=== PATIENT | female | born 1985 | race Caucasian/White ===

== ENCOUNTER → 2020-07-12 16:51 | Outpatient (CLI) | payer BC, SELFPAY ==
[2020-07-12] MEDS: COVID-19 VACC #1, MRNA(MOD) 100 MCG/0.5 ML VIAL IM (16:58)
== END ==
PROVIDERS: Family Provider Family Medicine; PCP Family Medicine; Visit Provider Internal Medicine
DX: Z23 Encounter for immunization (principal)
CPT/HCPCS: 0011A; 91301

== ENCOUNTER → 2020-08-09 15:26 | Outpatient (CLI) | payer BC, SELFPAY ==
[2020-08-09] MEDS: COVID-19 VACC #2, MRNA(MOD) 100 MCG/0.5 ML VIAL IM (15:32)
== END ==
PROVIDERS: Family Provider Family Medicine; PCP Family Medicine; Visit Provider Internal Medicine
DX: Z23 Encounter for immunization (principal)
CPT/HCPCS: 0012A; 91301

== ENCOUNTER 2020-12-04 21:23 | Emergency (ER) | payer BC, SELFPAY ==
[2020-12-04 21:37] VITALS: BP 119/71; PULSE 83; RESP 14; TEMP 37.1; O2SAT 97; BMI 22.8
--- NOTE | 2020-12-04 21:42 | ED.RECABL ---
HPI - Recheck/Abnormal Lab/Rx General Chief Complaint: Recheck/Abnormal Lab/Rx Stated Complaint: WANTS COVID TEST Time Seen by Provider: 12/04/20 21:25 Source: patient Mode of arrival: Ambulatory Limitations: no limitations History of Present Illness HPI narrative: 34-year-old female nonsmoker with noncontributory medical history presents requesting a test for COVID after attending a baby shower over the weekend where there was someone who was later found to be COVID positive. Patient denies any symptoms whatsoever. Patient denies fever, headache, runny nose, nasal congestion, sore throat, cough or GI symptoms such as nausea, vomiting or diarrhea Related Data Allergies Allergy/AdvReac Type Severity Reaction Status Date / Time No Known Drug Allergies Allergy Verified 12/04/20 21:37 Review of Systems Review of Systems Narrative: GENERAL: Denies chills, fatigue, malaise, fever, sweats. HEENT: Denies sinus pain, ear pain, sore throat, difficulty swallowing, dizziness. RESPIRATORY: Denies dyspnea, cough, wheezing, hemoptysis, sputum. CARDIOVASCULAR: Denies chest pain, palpitations, orthopnea, edema, GASTROINTESTINAL: Denies nausea, vomiting, abdominal pain, diarrhea, constipation, melena. : Denies dysuria, frequency, incontinence, hematuria, urinary retention. MUSCULOSKELETAL: denies weakness, joint pain, or bony pain SKIN: Denies rash, skin lesions, or other NEUROLOGIC: Denies weakness, headache, numbness, change in speech, confusion, seizures, incoordination. PSYCHIATRIC: No concerning psychosocial issues. 12 point review of systems is negative except for those stated above Patient History Social History Smoking Status: Never smoker Smoking Status: Never smoker alcohol intake frequency: holidays/special occasions only Substance Use Type: does not use Exam Narrative Exam Narrative: GEN: AOx3 and in mild distress EYES: Pupils are equal, round, and reactive to light and accommodation. Extraoccular muscles are intact bilaterally. There is no subconjunctival hemorrhage or exudate. CHEST: Lungs are clear to auscultation bilaterally and free of wheezes, rales, or rhonchi. Heart rate is regular rhythm, there are no murmurs, clicks, rubs, or gallops. There is no chest wall tenderness. ABD: Abdomen is soft and nontender. There is no guarding or rebound. Bowel sounds are normal in all 4 quadrants. There is no mass or organomegaly. EXT: Full painless ROM of all extremities with no loss of sensation or strength. SKIN: Warm, pink, and dry. No erythema or rash Initial Vital Signs Initial Vital Signs: Vital Signs Temperature 98.8 F 12/04/20 21:37 Pulse Rate 83 12/04/20 21:37 Respiratory Rate 14 12/04/20 21:37 Blood Pressure 119/71 12/04/20 21:37 Pulse Oximetry 97 12/04/20 21:37 Course Orders Ordered: ED Orders 12/04/20 21:30 COVID19 -Nasal swab/Pre-Proc Stat Vital Signs Vital signs: Vital Signs - 8 hr 12/04/20 21:37 Temperature 98.8 F Pulse Rate 83 Respiratory Rate 14 Blood Pressure 119/71 Pulse Oximetry 97 MDM - Recheck/Abnormal Lab/Rx Lab Data Labs: Lab Results 12/04/20 Range/Units 21:30 SARS-CoV-2 (PCR) Negative (Negative) Discharge Plan Departure Patient Disposition: Home Clinical Impression: Feared complaint without diagnosis Instructions: COVID-19: Testing and Tracing Activity Restrictions/Additional Instructions: As we discussed you have no symptoms today and testing is negative, however the following are the COVID instructions I would give to patient's if you do turn positive *You have been diagnosed with [ COVID-19] *What to do: * per recommendations from the CDC and the [facility] Department of Health * stay home except to get medical care. Restrict activities outside your home, except for getting medical care. Do not go to work, school, or public areas. Avoid using public transportation, ride sharing, or taxis. * separate yourself from other people in your home. * call ahead before visiting your doctor * Wear a facemask * Cover your coughs and sneezes * Clean your hands often * Avoid sharing household items * Clean all high-touch services every day * Monitor your symptoms and seek prompt medical attention if your illness is worsening, particularly with difficulty in breathing. You may discontinue your isolation when: 1. You have been fever-free for at least 24 hours without the use of fever reducing medication, AND 2. Your symptoms are getting better 3. At least 10 days have passed since symptoms first appeared Individuals with laboratory confirmed COVID-19 who have not had any symptoms may discontinue home isolation when at least 10 days have passed since the date of their first COVID-19 diagnostic test and have had no subsequent illness Referrals: Donnie Spears MD [Primary Care Provider] -
[2020-12-04 22:23] LABS: COVID19 -Nasal RAPID Negative (Negative)
== END 2020-12-04 22:37 | disposition home or self-care (01) ==
PROVIDERS: Emergency Provider Emergency Medicine; Family Provider Family Medicine; PCP Family Medicine
DX: Z20.822 Contact with and (suspected) exposure to COVID-19 (principal)
CPT/HCPCS: 87635; 99281; C9803

== ENCOUNTER → 2021-03-07 12:56 | Outpatient (CLI) | payer BC, SELFPAY ==
--- NOTE | 2021-03-07 | DI.RAD.S_ITS ---
PROCEDURE: XR WRIST RT MIN 3V INDICATIONS: RIGHT WRIST PAIN TECHNIQUE: 4 views of the wrist were acquired. COMPARISON: None. FINDINGS: Bones: No fractures or dislocations. No suspicious bony lesions. Soft tissues: No suspicious soft tissue calcifications. IMPRESSION: Negative examination as above. If the patient's pain or other symptoms persist, consider further evaluation with MRI Dictated by: Pedro Nova M.D. on 03/07/2021 at 13:10 Approved by: Pedro Nova M.D. on 03/07/2021 at 13:14
== END ==
PROVIDERS: Family Provider Family Medicine; PCP Family Medicine; Referring Provider Family Medicine; Visit Provider Family Medicine
DX: M25.531 Pain in right wrist (principal); G56.21 Lesion of ulnar nerve, right upper limb
CPT/HCPCS: 73110

== ENCOUNTER 2021-09-07 10:30 | Emergency (ER) | payer BC, SELFPAY ==
[2021-09-07 10:35] VITALS: BP 147/82; PULSE 115; RESP 20; TEMP 36.6; O2SAT 98; BMI 22.6
--- NOTE | 2021-09-07 10:47 | DI.RAD.S_ITS ---
PROCEDURE: XR NASAL BONES MIN 3V INDICATIONS: Softball to the nose TECHNIQUE: 3 views of the nasal bones acquired. COMPARISON: None. FINDINGS: Bones: Nasal bone fracture with mild displacement. No dislocations. Soft tissues: No suspicious soft tissue calcifications. IMPRESSION: Nasal bone fracture. Dictated by: James Jj M.D. on 09/07/2021 at 11:15 Approved by: James Jj M.D. on 09/07/2021 at 11:16
--- NOTE | 2021-09-07 11:52 | ED_ITS ---
HPI - Head Injury <Hari Rico PA-C - Last Filed: 09/07/21 12:06> General Chief complaint: Head Injury Stated complaint: HIT IN FACE WITH SOFTBALL Time Seen by Provider: 09/07/21 11:44 Source: patient Mode of arrival: Ambulatory History of Present Illness HPI Narrative: Patient is a 35-year-old female who presents to the ED complaining of nasal pain after recently being struck by a softball. She states that while walking near a softball being pitched it was struck on the side of the nose. She denies any loss of consciousness she denies any other symptoms she is able to move air through both nares. She states the incident happened approximately 1 hour ago. No reported visual disturbances or visual changes no reported loss of smell no reported ear pain no reported jaw pain no reported headache. Patient denies any nausea vomiting or diarrhea fever cough congestion. Related Data Previous Rx's Medication Instructions Recorded hydrocodone 5 mg-acetaminophen 325 1 tab PO Q4-6H PRN #20 tab 09/07/21 mg tablet Allergies Allergy/AdvReac Type Severity Reaction Status Date / Time No Known Drug Allergies Allergy Verified 09/07/21 10:39 Review of Systems <Hari Rico PA-C - Last Filed: 09/07/21 12:06> Review of Systems ROS Unobtainable: All systems reviewed & are unremarkable except as noted in HPI and below Constitutional Constitutional: Denies chills, Denies fatigue, Denies fever(s), Denies frequent falls, Denies lethargy and Denies weakness Eyes Eyes: Denies change in vision, Denies eye discharge, Denies irritation and Denies loss of vision ENT Ears, Nose, Mouth, and Throat: Denies change in voice, Denies dizziness, Reports nasal obstruction, Reports nasal trauma, Denies neck pain, Denies sore throat and Denies throat swelling Cardiovascular Cardiovascular: Denies chest pain, Denies irregular heart rhythm, Denies lightheadedness, Denies palpitations, Denies dyspnea, Denies dyspnea on exertion and Denies orthopnea Respiratory Respiratory: Denies cough, Denies dyspnea, Denies dyspnea on exertion and Denies wheezing Gastrointestinal Gastrointestinal: Denies abdominal pain, Denies change in bowel habits, Denies diarrhea, Denies nausea and Denies vomiting Genitourinary Genitourinary: Denies hematuria, Denies flank pain, Denies urinary incontinence and Denies urinary urgency Musculoskeletal Musculoskeletal: Denies back pain, Denies muscle weakness, Denies neck pain, Denies numbness and Denies tingling Integumentary/Breasts Skin/Breast: Denies pruritus, Denies erythema, Denies rash and Denies wounds Neurologic Neurologic: Denies behavioral changes, Denies confusion, Denies dizziness, Denies frequent falls, Denies loss of vision, Denies numbness, Denies tingling and Denies weakness Psychiatric Psychiatric: Denies anxiety, Denies behavioral changes, Denies confusion, Denies depression, Denies homicidal ideation and Denies suicidal ideation Endocrine Endocrine: Denies fatigue, Denies flushing and Denies palpitations Hematologic/Lymphatic Hematologic/Lymphatic: Denies easy bruising Allergic/Immunologic Allergic/Immunologic: Denies urticaria, Denies throat swelling and Denies wheezing Patient History <Hari Rico PA-C - Last Filed: 09/07/21 12:06> Social History Smoking Status: Never smoker Smoking Status: Never smoker alcohol intake frequency: holidays/special occasions only Substance Use Type: does not use Exam <Hari Rico PA-C - Last Filed: 09/07/21 12:06> Initial Vital Signs Initial Vital Signs: Vital Signs Temperature 97.9 F 09/07/21 10:35 Pulse Rate 115 H 09/07/21 10:35 Respiratory Rate 20 09/07/21 10:35 Blood Pressure 147/82 H 09/07/21 10:35 Pulse Oximetry 98 09/07/21 10:35 Const General: cooperative, healthy appearing and comfortable Nutritional Appearance: average body habitus and well nourished [facility] Head: normal to inspection, normocephalic and atraumatic Ears: hearing grossly normal bilaterally, external ears normal and TM's normal bilaterally Nose: epistaxis, external nose abnormal (Nasal bridge appears disfigured) and TMJ nontender Face and sinus: normal facial exam, sinuses nontender and face symmetric Mouth: oral mucosae normal, lip normal, tongue normal, salivary ducts normal and oropharynx normal Teeth and gingiva: dentition normal Throat: posterior oropharynx normal and tonsils normal Eyes General: Yes appearance normal, both eyes and all related structures Visual Lacy: normal visual lacy by confrontation Alignment and Position: alignment normal and position normal Periorbital: periorbital findings normal Eyelids: eyelids normal Conjunctivae: conjunctivae normal Sclera: sclerae normal Cornea: corneas normal Pupils: PERRL EOM: EOM intact bilaterally Neck Neck: normal visual inspection and full ROM Resp Effort & Inspection: normal respiratory effort and able to speak in complete sentences Skin Trauma: abrasion (bridge of nose) Neuro General: patient alert, patient awake, patient oriented x3, gait normal, tone normal, moves all extremities, no focal motor deficits and CN's II-XI intact bilaterally <DO Manuel Gupta Last Filed: 09/08/21 08:20> Initial Vital Signs Initial Vital Signs: Vital Signs Temperature 97.9 F 09/07/21 10:35 Pulse Rate 115 H 09/07/21 10:35 Respiratory Rate 20 09/07/21 10:35 Blood Pressure 147/82 H 09/07/21 10:35 Pulse Oximetry 98 09/07/21 10:35 Course <Hari Rico PA-C - Last Filed: 09/07/21 12:06> Orders Ordered: Discontinued Medications Hydrocodone Bitart/Acetaminophen (Hydrocodone/Acet 5/325 Tablet) 1 tab PO NOW ONE Stop: 09/07/21 12:08 Last Admin: 09/07/21 12:13 Dose: 1 tab Documented by: SHERRY Vital Signs Vital signs: Vital Signs - 8 hr 09/07/21 10:35 Temperature 97.9 F Pulse Rate 115 H Respiratory Rate 20 Blood Pressure 147/82 H Pulse Oximetry 98 <DO Manuel Gupta Last Filed: 09/08/21 08:20> Orders Ordered: Discontinued Medications Hydrocodone Bitart/Acetaminophen (Hydrocodone/Acet 5/325 Tablet) 1 tab PO NOW ONE Stop: 09/07/21 12:08 Last Admin: 09/07/21 12:13 Dose: 1 tab Documented by: SHERRY Vital Signs Vital signs: Vital Signs - 8 hr 09/07/21 10:35 Temperature 97.9 F Pulse Rate 115 H Respiratory Rate 20 Blood Pressure 147/82 H Pulse Oximetry 98 MDM - Head Injury <KVNG Salazar Last Filed: 09/07/21 12:06> Differential Diagnosis Differential diagnosis: Likely other (nasal trauma) Imaging Data Nasal X-Ray: Radiologist's Impression: [address] [address] XRay Report Signed Patient: Leona Salgado MR#: [id number] : 1985 Acct:[id number] Age/Sex: 35 / F Date of Service: 09/07/21 Loc: ED Accession Number: [id number] ?? Procedure: XR nasal bones min 3V Ordering Provider: Caron Pinto D.O. PROCEDURE:? XR NASAL BONES MIN 3V ? INDICATIONS:? Softball to the nose ? TECHNIQUE:? 3 views of the nasal bones acquired.? ? COMPARISON:? None. ? FINDINGS:? ? Bones:? Nasal bone fracture with mild displacement.? No dislocations.? ? Soft tissues:? No suspicious soft tissue calcifications.? ? IMPRESSION:? Nasal bone fracture. ? ? Dictated by: James Jj M.D. on 09/07/2021 at 11:15 ? ? Approved by: James Jj M.D. on 09/07/2021 at 11:16?? MDM Narrative Medical decision making narrative: Patient was evaluated today for facial trauma from a softball injury. X-ray of the nasal bones shows evidence of a nasal bone fracture with mild displacement. Nose bleed is minimal at this point she has no neurological changes and is stable. Based on these findings it is likely that she will do well being treated outpatient. I suggested referral to ENT for evaluation. She was ag reeable I will recommend and ENT specialist for her and she will be discharged home. Patient will be given pain medication. Discharge Plan Departure Patient Disposition: Home Clinical Impression: Fracture of nasal bone Instructions: Skull and Facial Fracture Activity Restrictions/Additional Instructions: You were seen today for and nasal injury as result of being struck by a softball. The x-ray does show a nasal bone fracture with mild displacement. A prescription for hydrocodone was sent to [facility] in [facility] that she can pickle solution maker at your convenience. Copy of your x-ray and CD should also be given. [facility] does have an staple shear operator that is local and eir group is called [facility] their office . You can give them a call on Wednesday to schedule follow-up appointment. I would recommend applying ice 3 times a day for swelling. I would avoid blowing your nose as much as possible as this could trigger a significant nose bleed. You can return to the ED if symptoms worsen or you have difficulty breathing or swallowing. Thank you for the opportunity to care for you today. Prescriptions: New hydrocodone-acetaminophen 5-325 mg tablet 1 tab PO Q4-6H PRN (Reason: pain) Qty: 20 0RF Referrals: Yelitza Samaniego MD [Primary Care Provider] - <Caron Pinto DO - Last Filed: 09/08/21 08:20> Cosign ED Attending Radhaature Attestation: I was immediately available in the department for consultation. Documentation has been reviewed. I agree with assessment and plan.
[2021-09-07] MEDS: HYDROCODONE/ACET 5/325 TABLET 1 TAB PO (12:13)
[2021-09-07 12:26] VITALS: BP 130/73; PULSE 69; RESP 17; O2SAT 99
== END 2021-09-07 12:26 | disposition home or self-care (01) ==
PROVIDERS: Emergency Provider Physician Assistant; Family Provider Family Medicine; PCP Family Medicine
DX: S02.2XXA Fracture of nasal bones, initial encounter for closed fracture (principal); W21.07XA Struck by softball, initial encounter
CPT/HCPCS: 70160; 99283

== ENCOUNTER → 2021-09-11 14:01 | Outpatient (CLI) | payer BC, SELFPAY ==
[2021-09-11 15:11] LABS: COVID19 -Nasal RAPID Negative (Negative)
== END ==
PROVIDERS: Family Provider Family Medicine; PCP Family Medicine; Visit Provider Family Medicine Sleep Medicine
DX: Z20.822 Contact with and (suspected) exposure to COVID-19 (principal)
CPT/HCPCS: 87635; C9803

== ENCOUNTER 2021-09-12 08:43 | Day surgery (SDC) | payer BC, SELFPAY ==
[2021-09-11 10:27] VITALS: BMI 23.7
[2021-09-12] VITALS (7 sets, daily range): BP systolic 110–124; BP diastolic 70–80; PULSE 55–87; RESP 16–20; TEMP 36.5–36.8; O2SAT 93–100; BMI 23.7
--- NOTE | 2021-09-12 09:28 | SUR.OPER ---
Supine on padded OR bed, head on pillow, arms secured on padded arm boards at <90 degrees abduction, legs uncrossed, safety belt at thigh, tape over blanket over lower legs.
[2021-09-12] MEDS: LACTATED RINGERS 1,000 ML 42 ML IV (09:29)
[2021-09-12] MEDS: ACETAMINOPHEN 325 MG TABLET 975 MG PO (09:35)
[2021-09-12] MEDS: OXYMETAZOLINE NASAL SPRAY 15 ML 2 SPRAYS NASAL ×2 (09:41→10:04)
--- NOTE | 2021-09-12 09:49 | PM.PREOP ---
Pre-operative Note Interval Note History & Physical reviewed/Exam performed by Physician: Yes Changes to H&P: No
[2021-09-12] MEDS: LIDOCAINE 4% SOLN 50 ML 20 ML TOP (10:00)
--- NOTE | 2021-09-12 10:08 | PM.OP.1 ---
Operative Date/Time/Diagnoses Date of procedure: 09/12/21 Time of procedure: 10:08 Pre-op diagnosis: Closed Nasal Fracture with new external nasal deformity Post-op diagnosis: same Procedure & Clinicians Procedure: Closed reduction nasal fracture without stabilization Same procedure as scheduled: Yes Indications: 35yo female s/p closed nasal fracture 5d ago with new external nasal deformity presents for CRNFx. Following discussion of the material risks, benefits, complications, and alternatives, pt elected to proceed. Surgeon: Todd Walden Click Yes if Unassisted: Yes Anesthesia Type: General (mask) Operative Notes Findings: Depressed L nasal bone, elevated R, reduced. Chronic R caudal septal deviation, L 2-3+ septal deviation. Minimal bleeding, good reduction. Estimated Blood Loss (mL): 5 Procedure in detail: Following identification and confirmation of consent, as well as preoperative Afrin nasal spray she was brought to the operating suite and placed in the supine position. General mask anesthesia was administered. I packed small cotton balls with Afrin and 4% lidocaine tightly under the nasal bones bilaterally for a full minute. Upon removal, the Boies elevator was placed underneath the left depressed nasal bone, and external digital pressure was simultaneously applied over the elevated right nasal bone and the nasal pyramid was reduced past midline to allow eventual midline position, stable. The cotton was temporarily replaced underneath the nasal nasal bones for mild bleeding and was removed after another minute with good hemostasis She was awakened in the operating room and taken to recovery room stable condition without known complication. Complications: none Post-operative Condition: stable Disposition: same day surgery Plan for aftercare: Ice gently to the nasal dorsum as tolerated 24-48h, Afrin for any bleeding, nasal saline hourly while awake for moisturization.
[2021-09-12] MEDS: OXYCODONE IR 5 MG TABLET PO (11:03)
--- NOTE | 2021-09-12 11:26 | SUR.PHASEII ---
Pt given discharge instructions. Pt states she understands discharge instructions. Pt states she feels better. pt discharged with .
== END 2021-09-12 11:20 | disposition home or self-care (01) ==
PROVIDERS: Family Provider Family Medicine; PCP Family Medicine; Referring Provider Otolaryngology; Visit Provider Otolaryngology
PROC: 0NSBXZZ Reposition Nasal Bone, External Approach (ICD-10-PCS; CPT 21337; principal; 2021-09-12 10:15)
DX: S02.2XXA Fracture of nasal bones, initial encounter for closed fracture (principal); W21.07XA Struck by softball, initial encounter; Y93.64 Activity, baseball; Y92.9 Unspecified place or not applicable; J34.89 Other specified disorders of nose and nasal sinuses; J34.2 Deviated nasal septum
CPT/HCPCS: 21337; A9270; J1100; J2250; J2405; J2704; J3010

== ENCOUNTER → 2022-04-06 18:38 | Outpatient (ROUT) | payer BC, SELFPAY ==
[2022-04-06 19:20] LABS: COVID-19 CEPHEID 4-PLEX PCR Negative (Negative); Influenza A - CEPHEID Flu A POSITIVE (NEGATIVE); Influenza B - CEPHEID Flu B NEGATIVE (NEGATIVE); Respiratory Syncytial Virus Negative (Negative)
== END ==
PROVIDERS: Family Provider Family Medicine; PCP Family Medicine; Visit Provider Family Medicine
DX: Z20.822 Contact with and (suspected) exposure to COVID-19 (principal)
CPT/HCPCS: 0241U